=== PATIENT | male | born 2000 | race Caucasian/White ===

== ENCOUNTER 2018-10-20 01:59 | Emergency (ER) | payer SELFPAY ==
[2018-10-20 02:54] LABS: ABS Basophils 0 10^3/ul (0-0.2); ABS Eosinophils 0.1 10^3/ul (0-0.6); ABS Lymphocytes 1.9 10^3/ul (1.0-4.8); ABS Monocytes 0.8 10^3/ul (0-0.8); ABS Neutrophils 10.9 10^3/ul (1.5-7.7); ABS Nucleated RBC 0 10^3/ul; Eosinophil % 0.5 %; Hematocrit 42 % (42-52); Hemoglobin 14.1 g/dl (14.0-18.0); Lymphocyte % 13.8 %; Mean Corpuscular HGB Conc 34 g/dl (31-36); Mean Corpuscular Hemoglobin 31 pg (27-31); Mean Corpuscular Volume 91 fL (80-94); Mean Platelet Volume 8.4 fL (7.4-10.4); Nucleated Red Blood Cells % 0; Platelet Count 222 10^3/ul (150-450); Red Blood Count 4.57 10^6/ul (4.00-5.40); Red Cell Distribution Width 12 % (10.5-15); White Blood Count 13.7 10^3/ul (3.5-10.8)
[2018-10-20 03:09] LABS: EGFR Non-African American 118.1 (>60)
[2018-10-20] MEDS ORDERED: Potassium Chlor TAB* 20 MEQ TAB.ER PO ONE (03:36)
--- NOTE | 2018-10-20 04:17 | ED ---
Substance Abuse/Use - HPI Summary HPI Summary: The pt is a 18 y.o male who is presenting to the [facility] and brought in via ambulance presenting with a chief complaint of substance abuse. The reportedly injured his head s/p intoxication. EMS report states that he was drinking wiht his friends. The patient denies and use of other recreational drugs. The reports bleeding and a head laceration at the back of his head. Symptoms aggravated by nothing and symptoms alleviated by nothing. - History Of Current Complaint Chief Complaint: EDSubstanceAbuse Stated Complaint: ETOH/HEAD LAC Time Seen by Provider: 10/20/18 02:01 Hx Obtained From: Patient, EMS Aggravating Factor(s): Nothing Alleviating Factor(s): Nothing - Allergies/Home Medications Allergies/Adverse Reactions: Allergies Allergy/AdvReac Type Severity Reaction Status Date / Time No Known Allergies Allergy Verified 10/20/18 02:06 Home Medications: Home Medications Unobtainable 10/20/18 [History Confirmed 10/20/18] PMH/Surg Hx/FS Hx/Imm Hx Sensory History: Denies: Hx Vision Problem, Hx Deafness Opthamlomology History: Denies: Hx Legally Blind EENT History: Denies: Hx Deafness - Immunization History Immunizations Up to Date: Yes Infectious Disease History: Unable to Obtain/Confirm Infectious Disease History: Denies: Traveled Outside the [place] in Last 30 Days - Family History Family History: FHx reviewed and noncontributory - Social History Occupation: Student Lives: Dormitory/Roommates Alcohol Use: Occasionally Substance Use Type: Reports: None Smoking Status (MU): Never Smoked Tobacco Review of Systems Constitutional: Negative Eyes: Negative ENT: Negative Cardiovascular: Negative Respiratory: Negative Gastrointestinal: Negative Genitourinary: Negative Musculoskeletal: Negative Skin: Other - Laceration at the back of the head Positive: Other - Bleeding at the back of the head Neurological: Other - Intoxicated Positive: Headache - Head injury Psychological: Normal All Other Systems Reviewed And Are Negative: Yes Physical Exam - Summary Physical Exam Summary: GENERAL: Patient is a well-developed and nourished Male who is lying comfortable in the stretcher. Patient is not in any acute respiratory distress. HEAD AND FACE: Normocephalic EYES: PERRLA, EOMI x 2. EARS: Hearing grossly intact. MOUTH: Oropharynx within normal limits. NECK: Supple, trachea is midline, no adenopathy, no JVD, no carotid bruit. CHEST: Symmetric, no tenderness at palpation LUNGS: Clear to auscultation bilaterally. No wheezing or crackles. CVS: Regular rate and rhythm, S1 and S2 present, no murmurs or gallops appreciated. ABDOMEN: Soft, non-tender. Bowel sounds are normal. No abdominal abnormal pulsations. EXTREMITIES: Full ROM in all major joints, no edema, no cyanosis or clubbing. NEURO: Alert and oriented x 3. No acute neurological deficits. Speech is normal and follows commands. SKIN 3.5 cm laceration to occipital lobe area to the right side [place] Coma Scale: 14 Triage Information Reviewed: Yes Vital Signs On Initial Exam: Initial Vitals Temp Pulse Resp BP Pulse Ox 97 F 80 14 150/70 99 10/20/18 02:01 10/20/18 02:01 10/20/18 02:01 10/20/18 02:01 10/20/18 02:01 Vital Signs Reviewed: Yes Procedures - Laceration/Wound Repair 7 Closure: Jayda #__ - 7 Diagnostics - Vital Signs Vital Signs Temp Pulse Resp BP Pulse Ox 10/20/18 04:05 87 14 122/63 97 10/20/18 02:01 97 F 80 14 150/70 99 - Laboratory Lab Results: Lab Results 10/20/18 10/20/18 Range/Units 02:41 02:41 WBC 13.7 H (3.5-10.8) 10^3/ul RBC 4.57 (4.00-5.40) 10^6/ul Hgb 14.1 (14.0-18.0) g/dl Hct 42 (42-52) % MCV 91 (80-94) fL MCH 31 (27-31) pg MCHC 34 (31-36) g/dl RDW 12 (10.5-15) % Plt Count 222 (150-450) 10^3/ul MPV 8.4 (7.4-10.4) fL Neut % (Auto) 79.7 % Lymph % (Auto) 13.8 % [place] % (Auto) 5.8 % Eos % (Auto) 0.5 % Baso % (Auto) 0.2 % Absolute Neuts (auto) 10.9 H (1.5-7.7) 10^3/ul Absolute Lymphs (auto) 1.9 (1.0-4.8) 10^3/ul Absolute Monos (auto) 0.8 (0-0.8) 10^3/ul Absolute Eos (auto) 0.1 (0-0.6) 10^3/ul Absolute Basos (auto) 0 (0-0.2) 10^3/ul Absolute Nucleated RBC 0 10^3/ul Nucleated RBC % 0 Sodium 137 (135-145) mmol/L Potassium 3.2 L (3.5-5.0) mmol/L Chloride 102 (101-111) mmol/L Carbon Dioxide 24 (22-32) mmol/L Anion Gap 11 (2-11) mmol/L BUN 14 (6-24) mg/dL Creatinine 0.83 (0.67-1.17) mg/dL Est GFR ( Amer) 142.9 (>60) Est GFR (Non-Af Amer) 118.1 (>60) BUN/Creatinine Ratio 16.9 (8-20) Glucose 208 H (70-100) mg/dL Calcium 9.1 (8.6-10.3) mg/dL Total Bilirubin 0.30 (0.2-1.0) mg/dL AST 22 (13-39) U/L ALT 44 (7-52) U/L Alkaline Phosphatase 63 (34-104) U/L Total Protein 7.0 (6.4-8.9) g/dL Albumin 4.7 (3.2-5.2) g/dL Globulin 2.3 (2-4) g/dL Albumin/Globulin Ratio 2.0 (1-3) Serum Alcohol 296 H (<10) mg/dL Result Diagrams: 10/20/18 02:41 10/20/18 02:41 Lab Statement: Any lab studies that have been ordered have been reviewed, and results considered in the medical decision making process. - CT Brain CT CT Interpretation Completed By: Radiologist Summary of CT Findings: Brain CT reveals no acute intracranial pathologies as per radiologist. The ED Physician has reviewed this radiology report. Cervical Spine CT CT Interpretation Completed By: Radiologist Summary of CT Findings: Cervicla Spine CT reveals no acute findings as per radiologist. The ED Physician has reviewed this radiology report. Course/Dx - Course Course Of Treatment: The patient is a 18 y.o male presenting to the [facility] with a chief complaint of alcohol intoxication. The work up is remarkable with a head injury and laceration at the occipital lobe to the right. The patient recieved 7 jayda at the sight of the laceration. The patient also recieved a Brain CT and a cervical spine CT. We discussed the results with the patient. They agree with the discharge disposition. The patient was awake and orientated upon reevaluation. He had sober friends with him bedside that were able to take him home. He was able to take potassium PO. The patient will be discharged home with head injury and alcohol intoxication. - Diagnoses Provider Diagnoses: Head injury, Alcohol intoxication Discharge - Sign-Out/Discharge Documenting (check all that apply): Patient Departure - Discharge Home - Discharge Plan Condition: Stable Disposition: HOME Patient Education Materials: Head Injury (ED), Alcohol Intoxication (ED), Staple Care (ED) Referrals: [facility] [Z.BUSINESS, APPLICATION, OTHER] - Additional Instructions: Follow up with your primary care physician in 1-3 days. Please follow up for removal of staple within 7 to 9 days. RETURN TO THE EMERGENCY DEPARTMENT FOR CHANGING OR WORSENING SYMPTOMS. - Billing Disposition and Condition Condition: STABLE Disposition: Home - Attestation Statements Document Initiated by Cheriseibe: Yes Documenting Scribe: Ravinder Mandujano Provider For Whom Sal is Documenting (Include Credential): Dr. Rosa Erwin Attestation: Ravinder Pina, scribed for Dr. Rosa Granados on 10/20/18 at 0617. Scribe Documentation Reviewed: Yes Provider Attestation: The documentation as recorded by the Ravinder erwin accurately reflects the service I personally performed and the decisions made by , Dr. Rosa Granados Status of Scribe Document: Viewed
[2018-10-20 05:14] VITALS: BP 112/58
== END 2018-10-20 05:13 | disposition home or self-care (01) ==
LOC: ED 01:59
DX: S09.90XA Unspecified injury of head, initial encounter (principal); X58.XXXA Exposure to other specified factors, initial encounter; Y92.9 Unspecified place or not applicable; F10.129 Alcohol abuse with intoxication, unspecified; Y90.8 Blood alcohol level of 240 mg/100 ml or more
CPT/HCPCS: 12001; 36415; 70450; 72125; 80053; 80320; 85025; 99283; A9270-GY; G0480